=== PATIENT | female | born 1980 | race Caucasian/White ===

== ENCOUNTER 2017-09-22 11:39 | Emergency (ER) | payer SELFPAY ==
[~2017-09-22] VITALS: Ht 152.4 cm; Wt 87.5 kg
[2017-09-22 12:50] VITALS: BP 142/91
== END 2017-09-22 12:51 | disposition left against medical advice (07) ==
LOC: EME 11:39
DX: J06.9 Acute upper respiratory infection, unspecified (principal); F41.9 Anxiety disorder, unspecified; F32.9 Major depressive disorder, single episode, unspecified; F17.210 Nicotine dependence, cigarettes, uncomplicated; Z53.20 Procedure and treatment not carried out because of patient's decision for unspecified reasons
CPT/HCPCS: 80048; 81003; 84702; 85025; 99281; 99284; G0480